=== PATIENT | male | born 1950 | race Caucasian/White ===

== ENCOUNTER 2020-06-30 21:31 | Observation (INO) | payer MEDICARE, OTHER ==
--- NOTE | 2020-06-30 21:53 | EDM.PDOC ---
ED HPI GENERAL MEDICAL PROBLEM - General Chief Complaint: Neuro Symptoms/Deficits Stated Complaint: weakness Time Seen by Provider: 06/30/20 21:43 Source of Information: Reports: Patient History Limitations: Reports: No Limitations - History of Present Illness INITIAL COMMENTS - FREE TEXT/NARRATIVE: Patient developed left eye burning, slurred speech, right arm numbness, and akash ateral leg weakness while eating supper @1930 tonight, symptoms resolved after 10 min, but recurred en route to the ED. PMHx includes HTN, Afib (s/p ablation), and CAD. Denies chest pain or SOB. EMS gave ASA 324mg PO en route. Onset: Sudden - Related Data Allergies Allergy/AdvReac Type Severity Reaction Status Date / Time No Known Allergies Allergy Verified 06/30/20 21:51 Home Meds: Home Meds Aspirin [Halfprin] 81 mg PO DAILY 06/30/20 [History] Ezetimibe [Zetia] 10 mg PO DAILY 06/30/20 [History] Omeprazole 20 mg PO DAILY 06/30/20 [History] Sotalol [Betapace, Sorine] 80 mg PO BID 06/30/20 [History] amLODIPine [Norvasc] 5 mg PO DAILY 06/30/20 [History] Past Medical History Cardiovascular History: Reports: Afib (paroxysmal), CAD, High Cholesterol, Hypertension Gastrointestinal History: Reports: GERD - Past Surgical History Cardiovascular Surgical History: Reports: Cardiac Ablation, Coronary Artery Stent Social & Family History - Alcohol Use Alcohol Use History: No ED ROS GENERAL - Review of Systems Review Of Systems: Comprehensive ROS is negative, except as noted in HPI. ED EXAM, NEURO - Physical Exam Exam: See Below Exam Limited By: No Limitations General Appearance: Alert, WD/WN, No Apparent Distress Eye Exam: Bilateral Eye: EOMI, PERRL Throat/Mouth: Normal Inspection, No Airway Compromise Head Exam: Atraumatic, Normocephalic Neck: Full Range of Motion Respiratory/Chest: No Respiratory Distress, Lungs Clear, Normal Breath Sounds Cardiovascular: Regular Rate, Rhythm, No Gallop, No Murmur GI/Abdominal: No Distention Neurological: Alert, Normal Mood/Affect, CN II-XII Intact, No Motor/Sensory Deficits, Oriented x 3, Other (GCS=15, NIHSS score=0) Extremities: Normal Range of Motion, No Pedal Edema Psychiatric: Normal Affect, Normal Mood Skin Exam: Warm, Dry, Intact #1 Interpretation EKG Date: 06/30/20 Time: 21:40 Rhythm: NSR Rate (Beats/Min): 65 [place]: Normal P-Wave: Present QRS: LBBB ST-T: Normal QT: Normal Comparison: No Change (05/08/20 ([facility])) Course - Vital Signs Last Recorded V/S: Last Vital Signs Temp 36.8 C 06/30/20 21:31 Pulse 80 06/30/20 21:31 Resp 16 06/30/20 21:31 BP 175/114 H 06/30/20 21:31 Pulse Ox 97 06/30/20 21:31 - Orders/Labs/Meds Orders: Active Orders 24 hr Category Date Time Status Admission Status [Patient Status] [ADT] Routine ADT 07/01/20 00:15 Ordered EKG Documentation Completion [RC] ASDIRECTED Care 06/30/20 21:42 Active Ang Head [CT] Stat Exams 06/30/20 22:43 Taken Ang Neck [CT] Stat Exams 06/30/20 22:43 Ordered Head wo Cont [CT] Stat Exams 06/30/20 21:41 Taken CORONAVIRUS COVID-19 BETHANY [MOLEC] Stat Lab 07/01/20 00:17 Ordered EKG 12 Lead [EK] Stat Ther 06/30/20 21:42 Ordered Labs: Laboratory Tests 06/30/20 06/30/20 06/30/20 Range/Units 21:48 21:48 21:48 WBC 6.0 (3.2-10.1) x10-3/uL RBC 4.54 (3.90-5.90) x10(6)uL Hgb 13.8 (12.9-17.7) g/dL Hct 41.0 (38.3-50.1) % MCV 90.3 (80.8-98.7) fL MCH 30.4 (27.0-33.3) pg MCHC 33.6 (28.7-35.3) g/dL RDW 14.0 (12.4-15.0) % Plt Count 194 (117-477) x10(3)uL MPV 9.2 (6.7-11.0) fL Neut % (Auto) 56.8 (40.3-71.8) % Lymph % (Auto) 22.6 (15.8-45.3) % [place] % (Auto) 11.9 (5.5-15.2) % Eos % (Auto) 6.6 (0.1-6.8) % Baso % (Auto) 2.1 (0.3-3.8) % Neut # (Auto) 3.4 (1.7-6.9) x10-3/uL Lymph # (Auto) 1.3 (0.5-4.5) x10-3/uL [place] # (Auto) 0.7 (0.0-1.2) x10-3/uL Eos # (Auto) 0.4 (0.0-0.6) x10-3/uL Baso # (Auto) 0.1 (0.0-0.3) x10-3/uL PT 9.7 (9.0-11.1) sec INR 0.89 L (1.00-1.24) APTT 24.5 (24.4-33.2) SECONDS Sodium 136 (135-145) mmol/L Potassium 4.0 (3.5-5.3) mmol/L Chloride 103 (100-110) mmol/L Carbon Dioxide 25 (21-32) mmol/L BUN 16 (7-18) mg/dL Creatinine 1.0 (0.70-1.30) mg/dL Est Cr Clr Drug Dosing TNP Estimated GFR (MDRD) > 60 (>60) BUN/Creatinine Ratio 16.0 (9-20) Glucose 135 H (80-116) mg/dL Calcium 9.0 (8.6-10.2) mg/dL Total Bilirubin 0.3 (0.1-1.3) mg/dL AST 21 (5-25) IU/L ALT 36 (12-36) U/L Alkaline Phosphatase 74 (56-112) IU/L Troponin I (4.0-60.3) pg/mL Total Protein 6.9 (6.0-8.0) g/dL Albumin 3.8 (3.2-4.6) g/dL Globulin 3.1 g/dL Albumin/Globulin Ratio 1.2 06/30/20 Range/Units 21:48 WBC (3.2-10.1) x10-3/uL RBC (3.90-5.90) x10(6)uL Hgb (12.9-17.7) g/dL Hct (38.3-50.1) % MCV (80.8-98.7) fL MCH (27.0-33.3) pg MCHC (28.7-35.3) g/dL RDW (12.4-15.0) % Plt Count (117-477) x10(3)uL MPV (6.7-11.0) fL Neut % (Auto) (40.3-71.8) % Lymph % (Auto) (15.8-45.3) % [place] % (Auto) (5.5-15.2) % Eos % (Auto) (0.1-6.8) % Baso % (Auto) (0.3-3.8) % Neut # (Auto) (1.7-6.9) x10-3/uL Lymph # (Auto) (0.5-4.5) x10-3/uL [place] # (Auto) (0.0-1.2) x10-3/uL Eos # (Auto) (0.0-0.6) x10-3/uL Baso # (Auto) (0.0-0.3) x10-3/uL PT (9.0-11.1) sec INR (1.00-1.24) APTT (24.4-33.2) SECONDS Sodium (135-145) mmol/L Potassium (3.5-5.3) mmol/L Chloride (100-110) mmol/L Carbon Dioxide (21-32) mmol/L BUN (7-18) mg/dL Creatinine (0.70-1.30) mg/dL Est Cr Clr Drug Dosing Estimated GFR (MDRD) (>60) BUN/Creatinine Ratio (9-20) Glucose (80-116) mg/dL Calcium (8.6-10.2) mg/dL Total Bilirubin (0.1-1.3) mg/dL AST (5-25) IU/L ALT (12-36) U/L Alkaline Phosphatase (56-112) IU/L Troponin I 27.0 (4.0-60.3) pg/mL Total Protein (6.0-8.0) g/dL Albumin (3.2-4.6) g/dL Globulin g/dL Albumin/Globulin Ratio Meds: Medications Discontinued Medications Generic Name Dose Route Start Last Admin Trade Name Benjamin PRN Reason Stop Dose Admin Iopamidol 100 ml 06/30/20 22:50 Isovue-370 (76%) IV 06/30/20 22:51 ONETIME ONE - Radiology Interpretation Free Text/Narrative:: CT Head s/ contrast: IMPRESSION: No acute abnormality. Dictated by Mikayla Snow MD @ Jun 30 2020 10:14PM. CTA Brain: Impression: Normal CTA appearance of the brain. Dictated by Wallace El MD @ 06/30/2020 11:52:02 PM. CTA Neck: Impression: No significant vascular abnormality on CT angiography of the neck. No sign of any stenosis or dissection. Dictated by Wallace El MD @ 06/30/2020 11:56:13 PM. - Re-Assessments/Exams Free Text/Narrative Re-Assessment/Exam: 06/30/20 23:00 Symptoms recurred in the ED @2245, spontaneously resolved after 2-3 min. BP spontaneously improved to 118/81. 07/01/20 00:22 Patient care discussed with Dr. Beyer ([facility] Stroke Neurologist), differential diagnosis includes Cluster headache, HTN, vs atypical TIA. Recommends observation admission to [facility] and outpatient MRI with and w/o contrast next week. Departure - Departure Time of Disposition: 00:24 Disposition: Refer to Observation Condition: Fair Clinical Impression: TIA (transient ischemic attack) - Discharge Information *PRESCRIPTION DRUG MONITORING PROGRAM REVIEWED*: No *COPY OF PRESCRIPTION DRUG MONITORING REPORT IN PATIENT OSMAN: Not Applicable Forms: ED Department Discharge Sepsis Event Note (ED) - Focused Exam Vital Signs: Vital Signs Temp Pulse Resp BP Pulse Ox 06/30/20 21:31 36.8 C 80 16 175/114 H 97 - My Orders Last 24 Hours: My Active Orders 06/30/20 21:41 Head wo Cont [CT] Stat 06/30/20 21:42 EKG Documentation Completion [RC] ASDIRECTED EKG 12 Lead [EK] Stat 06/30/20 22:43 Ang Head [CT] Stat Ang Neck [CT] Stat 07/01/20 00:15 Admission Status [Patient Status] [ADT] Routine 07/01/20 00:17 CORONAVIRUS COVID-19 BETHANY [MOLEC] Stat - Assessment/Plan Last 24 Hours: My Active Orders 06/30/20 21:41 Head wo Cont [CT] Stat 06/30/20 21:42 EKG Documentation Completion [RC] ASDIRECTED EKG 12 Lead [EK] Stat 06/30/20 22:43 Ang Head [CT] Stat Ang Neck [CT] Stat 07/01/20 00:15 Admission Status [Patient Status] [ADT] Routine 07/01/20 00:17 CORONAVIRUS COVID-19 BETHANY [MOLEC] Stat
[2020-06-30] MEDS ORDERED: Iopamidol 755 Mg/ML 100 ML Bottle IV ONE (22:50)
[2020-07-01] MEDS ORDERED: OMEPRAZOLE 20 MG PO SCH (06:00)
[2020-07-01] MEDS ORDERED: EZETIMIBE 10 MG PO SCH (09:00)
[2020-07-01] MEDS ORDERED: Aspirin 325 MG Tab.EC PO SCH (09:00)
[2020-07-01] MEDS ORDERED: SOTALOL 80 MG PO SCH (09:00)
[2020-07-01] MEDS ORDERED: amLODIPine 5 MG Tab**OWN MED PO SCH (09:00)
--- NOTE | 2020-07-01 10:37 | PCM.HP.2 ---
H&P History of Present Illness - General Date of Service: 07/01/20 Admit Problem/Dx: Admission Diagnosis/Problem Admission Diagnosis/Problem TIA, Transient ischemic attack Source of Information: Patient, EMS Notes Reviewed History Limitations: Reports: No Limitations - History of Present Illness Initial Comments - Free Text/Narative: Tayo developed left eye burning, slurred speech, right arm numbness, and bilateral leg weakness while eating supper @1930 last night, symptoms resolved after 10 min, but recurred en route to the ER. PMHx includes HTN, Afib (s/p ablation Apr 2016), and CAD, 2 stents placed in Apr 2016. Denies chest pain or SOB. EMS gave ASA 324mg PO en route. No previous history of stroke. No blurred vision, ear pain, no rash or blisters. No difficulty swallowing. No nausea, vomiting, diarrhea, dysuria. He ice fished all day yesterday and then symptoms started when sat down to eat. He saw his PCP in Apr, was started on Zetia, Sotalol. Has echocardiogram every year in since his ablation and was negative in Apr 2020. Takes Omeprazole for Gastric reflux. Normally takes Aspirin 81 mg daily but forgot at home. Has had no recurrence of his Atrial fibrillation since his ablation in 2015. This morning he states burning around his left eye is only thing remaining. Had Chicken pox as a kid but no history of Shingles. Feels he is back to his normal function. He see MARY Munguia at [facility] in [place], [place] as his primary provider. CT head and CT angiogram done in ER were negative for ischemic or hemorrhagic stroke. Labs were unremarkable. EKG in ER was normal sinus rhythm with Left bundle branch block. No comparison. Covid negative. History of Covid infection in Dec 2019. - Related Data Allergies/Adverse Reactions: Allergies Allergy/AdvReac Type Severity Reaction Status Date / Time No Known Allergies Allergy Verified 06/30/20 21:51 Home Medications: Home Meds Aspirin [Halfprin] 81 mg PO DAILY 06/30/20 [History] Ezetimibe [Zetia] 10 mg PO DAILY 06/30/20 [History] Omeprazole 20 mg PO DAILY 06/30/20 [History] Sotalol [Betapace, Sorine] 80 mg PO BID 06/30/20 [History] amLODIPine [Norvasc] 5 mg PO DAILY 06/30/20 [History] Past Medical History Cardiovascular History: Reports: Afib (s/p ablation 04/2016), CAD, High Cholesterol, Hypertension, Stents (2 stents 04/2016) Gastrointestinal History: Reports: GERD - Past Surgical History Cardiovascular Surgical History: Reports: Cardiac Ablation, Coronary Artery Stent Social & Family History - Family History Family Medical History: Unobtainable - Tobacco Use Tobacco Use Status *Q: Former Tobacco User Used Tobacco, but Quit: Yes Month/Year Tobacco Last Used: 1995 - Alcohol Use Alcohol Use History: Yes Alcohol Use Frequency: Daily H&P Review of Systems - Review of Systems: Review Of Systems: Comprehensive ROS is negative, except as noted in HPI. Exam - Exam Exam: See Below - Vital Signs Vital Signs: Last Vital Signs Temp 97.7 F 07/01/20 01:30 Pulse 63 07/01/20 08:36 Resp 13 07/01/20 01:30 BP 120/89 07/01/20 08:37 Pulse Ox 96 07/01/20 02:00 Weight: 213 lb 3 oz - Exam General: Alert, Oriented, Cooperative. No: Mild Distress HEENT: PERRLA, Conjunctiva Clear, EACs Clear, EOMI, Hearing Intact, Mucosa Moist & [place], Nares Patent, TMs Clear (no vesicles present, minimal cerumen in canal, TMs fully visualized bilateral.), Glasses Neck: Trachea Midline, Lymphadenopathy Lungs: Clear to Auscultation, Normal Respiratory Effort Cardiovascular: Regular Rate, Regular Rhythm. No: Systolic Murmur, Diastolic Murmur GI/Abdominal Exam: Normal Bowel Sounds, Soft, Non-Tender, No Distention (Male) Exam: Deferred Rectal (Males) Exam: Deferred Extremities: No Pedal Edema, Normal Capillary Refill Peripheral Pulses: 2+: Radial (L), Radial (R) Neurological: Cranial Nerves Intact, Strength Equal Bilateral, Normal Speech, Normal Tone. No: Sensation Intact (decreased V1, V2 dermatome on left face) - Patient Data Lab Results Last 24 hrs: Laboratory Results - last 24 hr 06/30/20 06/30/20 06/30/20 Range/Units 21:48 21:48 21:48 WBC 6.0 (3.2-10.1) x10-3/uL RBC 4.54 (3.90-5.90) x10(6)uL Hgb 13.8 (12.9-17.7) g/dL Hct 41.0 (38.3-50.1) % MCV 90.3 (80.8-98.7) fL MCH 30.4 (27.0-33.3) pg MCHC 33.6 (28.7-35.3) g/dL RDW 14.0 (12.4-15.0) % Plt Count 194 (117-477) x10(3)uL MPV 9.2 (6.7-11.0) fL Neut % (Auto) 56.8 (40.3-71.8) % Lymph % (Auto) 22.6 (15.8-45.3) % [place] % (Auto) 11.9 (5.5-15.2) % Eos % (Auto) 6.6 (0.1-6.8) % Baso % (Auto) 2.1 (0.3-3.8) % Neut # (Auto) 3.4 (1.7-6.9) x10-3/uL Lymph # (Auto) 1.3 (0.5-4.5) x10-3/uL [place] # (Auto) 0.7 (0.0-1.2) x10-3/uL Eos # (Auto) 0.4 (0.0-0.6) x10-3/uL Baso # (Auto) 0.1 (0.0-0.3) x10-3/uL PT 9.7 (9.0-11.1) sec INR 0.89 L (1.00-1.24) APTT 24.5 (24.4-33.2) SECONDS Sodium 136 (135-145) mmol/L Potassium 4.0 (3.5-5.3) mmol/L Chloride 103 (100-110) mmol/L Carbon Dioxide 25 (21-32) mmol/L BUN 16 (7-18) mg/dL Creatinine 1.0 (0.70-1.30) mg/dL Est Cr Clr Drug Dosing TNP Estimated GFR (MDRD) > 60 (>60) BUN/Creatinine Ratio 16.0 (9-20) Glucose 135 H (80-116) mg/dL Calcium 9.0 (8.6-10.2) mg/dL Total Bilirubin 0.3 (0.1-1.3) mg/dL AST 21 (5-25) IU/L ALT 36 (12-36) U/L Alkaline Phosphatase 74 (56-112) IU/L Troponin I (4.0-60.3) pg/mL Total Protein 6.9 (6.0-8.0) g/dL Albumin 3.8 (3.2-4.6) g/dL Globulin 3.1 g/dL Albumin/Globulin Ratio 1.2 SARS-CoV-2 RNA (BETHANY) (NEGATIVE) 06/30/20 07/01/20 07/01/20 Range/Units 21:48 00:19 06:20 WBC 4.9 (3.2-10.1) x10-3/uL RBC 4.36 (3.90-5.90) x10(6)uL Hgb 13.1 (12.9-17.7) g/dL Hct 39.4 (38.3-50.1) % MCV 90.4 (80.8-98.7) fL MCH 30.1 (27.0-33.3) pg MCHC 33.3 (28.7-35.3) g/dL RDW 14.1 (12.4-15.0) % Plt Count 182 (117-477) x10(3)uL MPV 9.4 (6.7-11.0) fL Neut % (Auto) 45.3 (40.3-71.8) % Lymph % (Auto) 32.4 (15.8-45.3) % [place] % (Auto) 14.2 (5.5-15.2) % Eos % (Auto) 6.3 (0.1-6.8) % Baso % (Auto) 1.8 (0.3-3.8) % Neut # (Auto) 2.2 (1.7-6.9) x10-3/uL Lymph # (Auto) 1.6 (0.5-4.5) x10-3/uL [place] # (Auto) 0.7 (0.0-1.2) x10-3/uL Eos # (Auto) 0.3 (0.0-0.6) x10-3/uL Baso # (Auto) 0.1 (0.0-0.3) x10-3/uL PT (9.0-11.1) sec INR (1.00-1.24) APTT (24.4-33.2) SECONDS Sodium (135-145) mmol/L Potassium (3.5-5.3) mmol/L Chloride (100-110) mmol/L Carbon Dioxide (21-32) mmol/L BUN (7-18) mg/dL Creatinine (0.70-1.30) mg/dL Est Cr Clr Drug Dosing Estimated GFR (MDRD) (>60) BUN/Creatinine Ratio (9-20) Glucose (80-116) mg/dL Calcium (8.6-10.2) mg/dL Total Bilirubin (0.1-1.3) mg/dL AST (5-25) IU/L ALT (12-36) U/L Alkaline Phosphatase (56-112) IU/L Troponin I 27.0 (4.0-60.3) pg/mL Total Protein (6.0-8.0) g/dL Albumin (3.2-4.6) g/dL Globulin g/dL Albumin/Globulin Ratio SARS-CoV-2 RNA (BETHANY) Negative (NEGATIVE) 07/01/20 Range/Units 06:20 WBC (3.2-10.1) x10-3/uL RBC (3.90-5.90) x10(6)uL Hgb (12.9-17.7) g/dL Hct (38.3-50.1) % MCV (80.8-98.7) fL MCH (27.0-33.3) pg MCHC (28.7-35.3) g/dL RDW (12.4-15.0) % Plt Count (117-477) x10(3)uL MPV (6.7-11.0) fL Neut % (Auto) (40.3-71.8) % Lymph % (Auto) (15.8-45.3) % [place] % (Auto) (5.5-15.2) % Eos % (Auto) (0.1-6.8) % Baso % (Auto) (0.3-3.8) % Neut # (Auto) (1.7-6.9) x10-3/uL Lymph # (Auto) (0.5-4.5) x10-3/uL [place] # (Auto) (0.0-1.2) x10-3/uL Eos # (Auto) (0.0-0.6) x10-3/uL Baso # (Auto) (0.0-0.3) x10-3/uL PT (9.0-11.1) sec INR (1.00-1.24) APTT (24.4-33.2) SECONDS Sodium 140 (135-145) mmol/L Potassium 3.7 (3.5-5.3) mmol/L Chloride 105 (100-110) mmol/L Carbon Dioxide 27 (21-32) mmol/L BUN 19 H (7-18) mg/dL Creatinine 0.9 (0.70-1.30) mg/dL Est Cr Clr Drug Dosing 87.42 Estimated GFR (MDRD) > 60 (>60) BUN/Creatinine Ratio 21.1 H (9-20) Glucose 108 (80-116) mg/dL Calcium 8.7 (8.6-10.2) mg/dL Total Bilirubin (0.1-1.3) mg/dL AST (5-25) IU/L ALT (12-36) U/L Alkaline Phosphatase (56-112) IU/L Troponin I (4.0-60.3) pg/mL Total Protein (6.0-8.0) g/dL Albumin (3.2-4.6) g/dL Globulin g/dL Albumin/Globulin Ratio SARS-CoV-2 RNA (BETHANY) (NEGATIVE) Result Diagrams: 07/01/20 06:20 07/01/20 06:20 Imaging Impressions Last 24 hrs: CT Head s/ contrast: IMPRESSION: No acute abnormality. Dictated by Mikayla Snow MD @ Jun 30 2020 10:14PM. CTA Brain: Impression: Normal CTA appearance of the brain. Dictated by Wallace El MD @ 06/30/2020 11:52:02 PM. CTA Neck: Impression: No significant vascular abnormality on CT angiography of the neck. No sign of any stenosis or dissection. Dictated by Wallace El MD @ 06/30/2020 11:56:13 PM. Sepsis Event Note - Evaluation Sepsis Screening Result: No Definite Risk - Focused Exam Vital Signs: Vital Signs Temp Pulse Pulse Resp BP BP Pulse Ox 07/01/20 08:37 120/89 07/01/20 08:36 63 120/89 07/01/20 02:00 96 07/01/20 01:30 97.7 F 70 13 124/81 97 *Q Meaningful Use (ADM) - VTE Risk Assess *Q Each Risk Factor Represents 1 Point: None Total Score 1 Point Risk Factors: 0 Each Risk Factor Represents 2 Points: Age 60 - 74 Years Total Score 2 Point Risk Factors: 2 Each Risk Factor Represents 3 Points: None Total Score 3 Point Risk Factors: 0 Each Risk Factor Represents 5 Points: None Total Score 5 Point Risk Factors: 0 Venous Thromboembolism Risk Factor Score *Q: 2 - Problem List (1) TIA (transient ischemic attack) SNOMED Code(s): 943027726 ICD Code: G45.9 - TRANSIENT CEREBRAL ISCHEMIC ATTACK, UNSPECIFIED Status: Acute Current Visit: Yes (2) Hypertension SNOMED Code(s): 29913293 ICD Code: I10 - ESSENTIAL (PRIMARY) HYPERTENSION Status: Chronic Current Visit: Yes (3) History of coronary angioplasty with insertion of stent SNOMED Code(s): 411295375, 031122636, 885064936 ICD Code: Z95.5 - PRESENCE OF CORONARY ANGIOPLASTY IMPLANT AND GRAFT Status: Chronic Current Visit: Yes (4) History of coronary artery disease SNOMED Code(s): 733622111 ICD Code: Z86.79 - PERSONAL HISTORY OF OTHER DISEASES OF THE CIRCULATORY SYSTEM Status: Chronic Current Visit: Yes (5) Gastric reflux SNOMED Code(s): 658044950 ICD Code: K21.9 - GASTRO-ESOPHAGEAL REFLUX DISEASE WITHOUT ESOPHAGITIS Status: Chronic Current Visit: Yes (6) S/P ablation of atrial fibrillation SNOMED Code(s): 388487066, 639788617, 589018991 ICD Code: Z98.890 - OTHER SPECIFIED POSTPROCEDURAL STATES; Z86.79 - PERSONAL HISTORY OF OTHER DISEASES OF THE CIRCULATORY SYSTEM Status: Chronic Current Visit: Yes Problem List Initiated/Reviewed/Updated: Yes Orders Last 24hrs: Active Orders 24 hr Category Date Time Status Admission Status [Patient Status] [ADT] Routine ADT 07/01/20 00:15 Active Ambulate [RC] PER UNIT ROUTINE Care 07/01/20 00:35 Active Cardiac Monitoring [RC] CONTINUOUS Care 07/01/20 00:34 Active EKG Documentation Completion [RC] ASDIRECTED Care 06/30/20 21:42 Active Height and Weight [RC] DAILY Care 07/01/20 00:34 Active Intake and Output [RC] QSHIFT Care 07/01/20 00:34 Active Neuro Check [RC] Q4HWA Care 07/01/20 00:37 Active Oxygen Therapy [RC] PRN Care 07/01/20 00:34 Active Pulse Oximetry [RC] PRN Care 07/01/20 00:35 Active Up ad Ercia [RC] ASDIRECTED Care 07/01/20 00:34 Active VTE/DVT Education [RC] Per Unit Routine Care 07/01/20 00:34 Active Vital Signs [RC] QSHIFT Care 07/01/20 00:34 Active Heart Healthy Diet [DIET] Diet 07/01/20 Breakfast Active Ang Head [CT] Stat Exams 06/30/20 22:43 Taken Ang Neck [CT] Stat Exams 06/30/20 23:50 Taken Head wo Cont [CT] Stat Exams 06/30/20 21:41 Taken Aspirin [Ecotrin] Med 07/01/20 09:00 Active 325 mg PO DAILY Ezetimibe [Zetia] Med 07/01/20 09:00 Active 10 mg PO DAILY Omeprazole [Omeprazole] Med 07/01/20 06:00 Active 20 mg PO DAILY@0600 Sotalol [Betapace] Med 07/01/20 09:00 Active 80 mg PO BID amLODIPine [Norvasc] Med 07/01/20 09:00 Active 5 mg PO DAILY Resuscitation Status Routine Resus Stat 07/01/20 00:34 Ordered EKG 12 Lead [EK] Stat Ther 06/30/20 21:42 Ordered Medication Orders Amlodipine Besylate (Norvasc) 5 mg PO DAILY [facility] Last Admin: 07/01/20 08:37 Dose: 5 mg Documented by: REHAN Aspirin (Ecotrin) 325 mg PO DAILY [facility] Last Admin: 07/01/20 08:36 Dose: Not Given Documented by: REHAN Ezetimibe (Zetia) 10 mg PO DAILY [facility] Last Admin: 07/01/20 08:37 Dose: 10 mg Documented by: REHAN Omeprazole 20 Mg (CapsOwn Med) 20 mg PO DAILY@0600 [facility] Last Admin: 07/01/20 05:38 Dose: 20 mg Documented by: CHARLIE Sotalol HCl (Betapace) 80 mg PO BID [facility] Last Admin: 07/01/20 08:36 Dose: 80 mg Documented by: REHAN Assessment/Plan Comment:: 1. Admitted for observation for Transient Ischemic Attack. 2. TIA: symptoms have resolved except left facial burning along V1, V2 dermatome. No slurred speech or facial droop. No vesicles present. DDx Gonzáles's palsy, Shingles. Discussed treatment, risks, benefits: patient declined treatment at this time. Advised if he develops vesicles he will need treatment immediately as he could have vision loss from Shingles. He does not believe he has had shingles vaccination. Advised to get this from his PCP when he gets home. His imaging was negative. Labs unremarkable. Vitals are stable. Would not be able to get MRI head until Friday. Since patient is stable will have him get MRI head at home on Friday with his primary. Aspirin 325 mg daily. Zetia daily. Telemetry: normal sinus rhythm overnight. 3. HTN: Continue Sotaolol. 4. Heart Healthy Diet. 5. Activity: Ambulation, ad erica. 6. DVT prophylaxis: TEDs. Ambulation. 7. CODE STATUS: FULL CODE. - Mortality Measure Prognosis:: Good
--- NOTE | 2020-07-01 11:21 | PCM.DCSUM1 ---
Discharge Summary - Hospital Course HPI Initial Comments: Tayo developed left eye burning, slurred speech, right arm numbness, and bilateral leg weakness while eating supper @1930 last night, symptoms resolved after 10 min, but recurred en route to the ER. PMHx includes HTN, Afib (s/p ablation Apr 2016), and CAD, 2 stents placed in Apr 2016. Denies chest pain or SOB. EMS gave ASA 324mg PO en route. No previous history of stroke. No blurred vision, ear pain, no rash or blisters. No difficulty swallowing. No nausea, vomiting, diarrhea, dysuria. He ice fished all day yesterday and then symptoms started when sat down to eat. He saw his PCP in Apr, was started on Zetia, Sotalol. Has echocardiogram every year in Mar/Apr since his ablation and was negative in Apr 2020. Takes Omeprazole for Gastric reflux. Normally takes Aspirin 81 mg daily but forgot at home. Has had no recurrence of his Atrial fibrillation since his ablation in 2015. This morning he states burning around his left eye is only thing remaining. Had Chicken pox as a kid but no history of Shingles. Feels he is back to his normal function. He see MARY Munguia at [facility] in [place], [place] as his primary provider. CT head and CT angiogram done in ER were negative for ischemic or hemorrhagic stroke. Labs were unremarkable. EKG in ER was normal sinus rhythm with Left bundle branch block. No comparison. Covid negative. History of Covid infection in Dec 2019. Diagnosis: Stroke: No - Discharge Data Discharge Date: 07/01/20 Discharge Disposition: Home, Self-Care 01 Condition: Stable - Referral to Home Health Primary Care Physician: MARY Munguia [facility] - Discharge Diagnosis/Problem(s) (1) TIA (transient ischemic attack) SNOMED Code(s): 988279995 ICD Code: G45.9 - TRANSIENT CEREBRAL ISCHEMIC ATTACK, UNSPECIFIED Status: Acute Current Visit: Yes Problem Details: Symptoms resolved except left facial burning. DDx Gonzáles's Palsy vs Shingles. Advised to present to ER or clinic if develops vesicles to left face/cheek/ear immediately, had declined antiviral treatment here. (2) Hypertension SNOMED Code(s): 27545931 ICD Code: I10 - ESSENTIAL (PRIMARY) HYPERTENSION Status: Chronic Current Visit: Yes Qualifiers: Hypertension type: essential hypertension Qualified Code(s): I10 - Essential (primary) hypertension (3) History of coronary angioplasty with insertion of stent SNOMED Code(s): 926208875, 234704902, 235498250 ICD Code: Z95.5 - PRESENCE OF CORONARY ANGIOPLASTY IMPLANT AND GRAFT Status: Chronic Current Visit: Yes (4) History of coronary artery disease SNOMED Code(s): 051213191 ICD Code: Z86.79 - PERSONAL HISTORY OF OTHER DISEASES OF THE CIRCULATORY SYSTEM Status: Chronic Current Visit: Yes (5) Gastric reflux SNOMED Code(s): 455823703 ICD Code: K21.9 - GASTRO-ESOPHAGEAL REFLUX DISEASE WITHOUT ESOPHAGITIS Status: Chronic Current Visit: Yes (6) S/P ablation of atrial fibrillation SNOMED Code(s): 649644853, 293708242, 685695977 ICD Code: Z98.890 - OTHER SPECIFIED POSTPROCEDURAL STATES; Z86.79 - PERSONAL HISTORY OF OTHER DISEASES OF THE CIRCULATORY SYSTEM Status: Chronic Current Visit: Yes - Patient Summary/Data Recommended Follow-up Testing/Procedures: MRI head Hospital Course: Tayo was admitted for observation for TIA, CT head, CTA and CT neck were all negative. Symptoms resolved except left eye/forehead/cheek burning with decreased sensation but no slurred speech or facial droop. Strength full in all extremities. No vesicles present in left ear canal or left V1, V2 dermatome. Vitals were normal this morning BP 120/89. He declined Aspirin 325 mg this morning as he did not want to pay for it, would get over the counter at discharge. 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 Lipid panel due Jul 2020. MRI head would be needed but unable to get on the weekend. Will discharge patient home to get with his regular provider on Friday. Spoke with his sister Anat, advised he had declined antiviral treatment for possible Gonzáles's palsy vs Shingles, advised Tayo that if he develops any bli sters on his face, around his eye that does not cross midline to go to nearest ER or clinic to get evaluated and treated immediately. Tayo and Anat voiced understanding of this. - Patient Instructions Diet: Heart Healthy Diet Activity: As Tolerated Driving: Do Not Drive Showering/Bathing: May Shower Notify Provider of: Fever, Increased Pain (blisters around left eye/cheek, go to ER immediately if present, slurred speech/weakness) Other/Special Instructions: Follow up with MARY Munguia at [facility] on Friday for reevaluation and referral for MRI head. - Discharge Plan *PRESCRIPTION DRUG MONITORING PROGRAM REVIEWED*: No *COPY OF PRESCRIPTION DRUG MONITORING REPORT IN PATIENT OSMAN: Not Applicable Prescriptions/Med Rec: Aspirin [Ecotrin EC] 325 mg PO DAILY 30 Days #30 tab.ec Home Medications: Home Meds Ezetimibe [Zetia] 10 mg PO DAILY 06/30/20 [History] Omeprazole 20 mg PO DAILY 06/30/20 [History] Sotalol [Betapace] 80 mg PO BID 06/30/20 [History] amLODIPine [Norvasc] 5 mg PO DAILY 06/30/20 [History] Aspirin [Ecotrin EC] 325 mg PO DAILY 30 Days #30 tab.ec 07/01/20 [Rx] Oxygen Therapy Mode: Room Air Patient Handouts: Transient Ischemic Attack, [id number], Preventing Hypertension, Fall Prevention in Hospitals, Adult, Venous Thromboembolism Prevention Forms: ED Department Discharge - Discharge Summary/Plan Comment DC Time >30 min.: No - General Info Date of Service: 07/01/20 Subjective Update: He feels fine today, no weakness or numbness of right hand or legs. Still some burning around left eye/cheek but nothing in his left ear. No slurred speech or facial droop. Functional Status: Reports: Tolerating Diet, Ambulating, Urinating. Denies: New Symptoms - Patient Data Vitals - Most Recent: Last Vital Signs Temp 98.1 F 07/01/20 08:30 Pulse 63 07/01/20 08:36 Resp 18 07/01/20 08:30 BP 120/89 07/01/20 08:37 Pulse Ox 95 07/01/20 08:30 Weight - Most Recent: 213 lb 3 oz Imaging Impressions - Last 24 hrs: CT Head s/ contrast: IMPRESSION: No acute abnormality. Dictated by Mikayla Snow MD @ Jun 30 2020 10:14PM. CTA Brain: Impression: Normal CTA appearance of the brain. Dictated by Wallace El MD @ 06/30/2020 11:52:02 PM. CTA Neck: Impression: No significant vascular abnormality on CT angiography of the neck. No sign of any stenosis or dissection. Dictated by Wallace El MD @ 06/30/2020 11:56:13 PM. Lab Results - Last 24 hrs: Laboratory Results - last 24 hr 06/30/20 06/30/20 06/30/20 Range/Units 21:48 21:48 21:48 WBC 6.0 (3.2-10.1) x10-3/uL RBC 4.54 (3.90-5.90) x10(6)uL Hgb 13.8 (12.9-17.7) g/dL Hct 41.0 (38.3-50.1) % MCV 90.3 (80.8-98.7) fL MCH 30.4 (27.0-33.3) pg MCHC 33.6 (28.7-35.3) g/dL RDW 14.0 (12.4-15.0) % Plt Count 194 (117-477) x10(3)uL MPV 9.2 (6.7-11.0) fL Neut % (Auto) 56.8 (40.3-71.8) % Lymph % (Auto) 22.6 (15.8-45.3) % [place] % (Auto) 11.9 (5.5-15.2) % Eos % (Auto) 6.6 (0.1-6.8) % Baso % (Auto) 2.1 (0.3-3.8) % Neut # (Auto) 3.4 (1.7-6.9) x10-3/uL Lymph # (Auto) 1.3 (0.5-4.5) x10-3/uL [place] # (Auto) 0.7 (0.0-1.2) x10-3/uL Eos # (Auto) 0.4 (0.0-0.6) x10-3/uL Baso # (Auto) 0.1 (0.0-0.3) x10-3/uL PT 9.7 (9.0-11.1) sec INR 0.89 L (1.00-1.24) APTT 24.5 (24.4-33.2) SECONDS Sodium 136 (135-145) mmol/L Potassium 4.0 (3.5-5.3) mmol/L Chloride 103 (100-110) mmol/L Carbon Dioxide 25 (21-32) mmol/L BUN 16 (7-18) mg/dL Creatinine 1.0 (0.70-1.30) mg/dL Est Cr Clr Drug Dosing TNP Estimated GFR (MDRD) > 60 (>60) BUN/Creatinine Ratio 16.0 (9-20) Glucose 135 H (80-116) mg/dL Calcium 9.0 (8.6-10.2) mg/dL Total Bilirubin 0.3 (0.1-1.3) mg/dL AST 21 (5-25) IU/L ALT 36 (12-36) U/L Alkaline Phosphatase 74 (56-112) IU/L Troponin I (4.0-60.3) pg/mL Total Protein 6.9 (6.0-8.0) g/dL Albumin 3.8 (3.2-4.6) g/dL Globulin 3.1 g/dL Albumin/Globulin Ratio 1.2 SARS-CoV-2 RNA (BETHANY) (NEGATIVE) 06/30/20 07/01/20 07/01/20 Range/Units 21:48 00:19 06:20 WBC 4.9 (3.2-10.1) x10-3/uL RBC 4.36 (3.90-5.90) x10(6)uL Hgb 13.1 (12.9-17.7) g/dL Hct 39.4 (38.3-50.1) % MCV 90.4 (80.8-98.7) fL MCH 30.1 (27.0-33.3) pg MCHC 33.3 (28.7-35.3) g/dL RDW 14.1 (12.4-15.0) % Plt Count 182 (117-477) x10(3)uL MPV 9.4 (6.7-11.0) fL Neut % (Auto) 45.3 (40.3-71.8) % Lymph % (Auto) 32.4 (15.8-45.3) % [place] % (Auto) 14.2 (5.5-15.2) % Eos % (Auto) 6.3 (0.1-6.8) % Baso % (Auto) 1.8 (0.3-3.8) % Neut # (Auto) 2.2 (1.7-6.9) x10-3/uL Lymph # (Auto) 1.6 (0.5-4.5) x10-3/uL [place] # (Auto) 0.7 (0.0-1.2) x10-3/uL Eos # (Auto) 0.3 (0.0-0.6) x10-3/uL Baso # (Auto) 0.1 (0.0-0.3) x10-3/uL PT (9.0-11.1) sec INR (1.00-1.24) APTT (24.4-33.2) SECONDS Sodium (135-145) mmol/L Potassium (3.5-5.3) mmol/L Chloride (100-110) mmol/L Carbon Dioxide (21-32) mmol/L BUN (7-18) mg/dL Creatinine (0.70-1.30) mg/dL Est Cr Clr Drug Dosing Estimated GFR (MDRD) (>60) BUN/Creatinine Ratio (9-20) Glucose (80-116) mg/dL Calcium (8.6-10.2) mg/dL Total Bilirubin (0.1-1.3) mg/dL AST (5-25) IU/L ALT (12-36) U/L Alkaline Phosphatase (56-112) IU/L Troponin I 27.0 (4.0-60.3) pg/mL Total Protein (6.0-8.0) g/dL Albumin (3.2-4.6) g/dL Globulin g/dL Albumin/Globulin Ratio SARS-CoV-2 RNA (BETHANY) Negative (NEGATIVE) 07/01/20 Range/Units 06:20 WBC (3.2-10.1) x10-3/uL RBC (3.90-5.90) x10(6)uL Hgb (12.9-17.7) g/dL Hct (38.3-50.1) % MCV (80.8-98.7) fL MCH (27.0-33.3) pg MCHC (28.7-35.3) g/dL RDW (12.4-15.0) % Plt Count (117-477) x10(3)uL MPV (6.7-11.0) fL Neut % (Auto) (40.3-71.8) % Lymph % (Auto) (15.8-45.3) % [place] % (Auto) (5.5-15.2) % Eos % (Auto) (0.1-6.8) % Baso % (Auto) (0.3-3.8) % Neut # (Auto) (1.7-6.9) x10-3/uL Lymph # (Auto) (0.5-4.5) x10-3/uL [place] # (Auto) (0.0-1.2) x10-3/uL Eos # (Auto) (0.0-0.6) x10-3/uL Baso # (Auto) (0.0-0.3) x10-3/uL PT (9.0-11.1) sec INR (1.00-1.24) APTT (24.4-33.2) SECONDS Sodium 140 (135-145) mmol/L Potassium 3.7 (3.5-5.3) mmol/L Chloride 105 (100-110) mmol/L Carbon Dioxide 27 (21-32) mmol/L BUN 19 H (7-18) mg/dL Creatinine 0.9 (0.70-1.30) mg/dL Est Cr Clr Drug Dosing 87.42 Estimated GFR (MDRD) > 60 (>60) BUN/Creatinine Ratio 21.1 H (9-20) Glucose 108 (80-116) mg/dL Calcium 8.7 (8.6-10.2) mg/dL Total Bilirubin (0.1-1.3) mg/dL AST (5-25) IU/L ALT (12-36) U/L Alkaline Phosphatase (56-112) IU/L Troponin I (4.0-60.3) pg/mL Total Protein (6.0-8.0) g/dL Albumin (3.2-4.6) g/dL Globulin g/dL Albumin/Globulin Ratio SARS-CoV-2 RNA (BETHANY) (NEGATIVE) Med Orders - Current: Current Medications Amlodipine Besylate (Norvasc) 5 mg PO DAILY DAVE Last Admin: 07/01/20 08:37 Dose: 5 mg Documented by: Aspirin (Ecotrin) 325 mg PO DAILY [facility] Last Admin: 07/01/20 08:36 Dose: Not Given Documented by: Ezetimibe (Zetia) 10 mg PO DAILY [facility] Last Admin: 07/01/20 08:37 Dose: 10 mg Documented by: Omeprazole 20 Mg (CapsOwn Med) 20 mg PO DAILY@0600 [facility] Last Admin: 07/01/20 05:38 Dose: 20 mg Documented by: Sotalol HCl (Betapace) 80 mg PO BID [facility] Last Admin: 07/01/20 08:36 Dose: 80 mg Documented by: Discontinued Medications Iopamidol (Isovue-370 (76%)) 100 ml IV ONETIME ONE Stop: 06/30/20 22:51 - Exam General: Reports: Alert, Oriented, Cooperative, No Acute Distress HEENT: Reports: Pupils Equal, Pupils Reactive, EOMI, Mucous Membr. Moist/Landen, Other (No vesicles present left face(V1,V2) dermatome, bilateral ear canals clear, no vesicles present.) Lungs: Reports: Clear to Auscultation, Normal Respiratory Effort Cardiovascular: Reports: Regular Rate, Regular Rhythm GI/Abdominal Exam: Normal Bowel Sounds, Soft, Non-Tender (Male) Exam: Deferred Rectal (Males) Exam: Deferred Extremities: No Pedal Edema Neurological: Reports: No New Focal Deficit, Normal Speech, Normal Tone, Strength Equal Bilateral, Cranial Nerves Intact. Denies: Sensation Intact (decreased sensation V1, V2 dermatome on left.) Psy/Mental Status: Reports: Normal Affect, Normal Mood
== END 2020-07-01 12:00 | disposition home or self-care (01) ==
LOC: FB.ED 21:31 → FB.MS 07-01 00:15
PROVIDERS: ADMIT Emergency Medicine; ATTEND Family Medicine
DX: G45.9 Transient cerebral ischemic attack, unspecified (principal); I44.7 Left bundle-branch block, unspecified; I10 Essential (primary) hypertension; I25.10 Atherosclerotic heart disease of native coronary artery without angina pectoris; K21.9 Gastro-esophageal reflux disease without esophagitis; E78.00 Pure hypercholesterolemia, unspecified; Z20.822 Contact with and (suspected) exposure to COVID-19; Z86.16 Personal history of COVID-19; Z87.891 Personal history of nicotine dependence; Z86.79 Personal history of other diseases of the circulatory system; Z79.82 Long term (current) use of aspirin; Z79.899 Other long term (current) drug therapy; Z95.5 Presence of coronary angioplasty implant and graft
CPT/HCPCS: 36415; 70450; 70496; 70498; 80048; 80053; 84484; 85025; 85610; 85730; 93005; 99285; A9270; G0378; Q9967; U0002